=== PATIENT | female | born 1985 | race Caucasian/White ===

== ENCOUNTER 2019-08-27 11:25 | Inpatient (IN) | payer OTHER ==
[2019-08-27 11:59] VITALS: BMI 29.9
[2019-08-27] MEDS ORDERED: CITRIC ACID/SODIUM CITRATE 30 ML UNIT-DOSE CUP PO ONE ×2 (12:30→15:22)
[2019-08-27] MEDS ORDERED: ELECTROLYTE-148 SOLN 500 ML IV ONE (12:45)
[2019-08-27] MEDS ORDERED: ELECTROLYTE-148 SOLN 500 ML IV SCH (13:15)
[2019-08-27] MEDS ORDERED: OXYTOCIN 20 UNITS in 0.9% NS 20 UNIT/1,000 ML INFUS.BAG IV ONE ×2 (13:25→16:29)
[2019-08-27] MEDS ORDERED: OXYTOCIN 10 UNITS/ML VIAL ONE (13:25)
[2019-08-27] MEDS ORDERED: SUCCINYLCHOLINE CHLORIDE 200 MG/10 ML SYRINGE ONE (13:32)
[2019-08-27] MEDS ORDERED: morphine SULFATE/PF 0.5 MG/ML (2cc Syringe - QUVA) ONE (13:32)
[2019-08-27] MEDS ORDERED: PROPOFOL 20 ML ONE (13:33)
[2019-08-27] MEDS ORDERED: PHENYLEPHRINE HCL 10 MG/1 ML SINGLE DOSE VIAL ONE (13:33)
[2019-08-27] MEDS ORDERED: KETOROLAC TROMETHAMINE 30 MG/1 ML VIAL ONE (14:00)
[2019-08-27] MEDS ORDERED: DEXAMETHASONE SOD PHOSPHATE 4 MG/1 ML VIAL ONE (14:00)
[2019-08-27] MEDS ORDERED: ONDANSETRON 4 MG/2 ML VIAL IVPUSH PRN (14:21)
[2019-08-27] MEDS ORDERED: morphine SULFATE/PF 0.5 MG/ML (2cc Syringe - QUVA) EP ONE (14:21)
[2019-08-27] MEDS ORDERED: METHYLERGONOVINE MALEATE 0.2 MG/1 ML AMP IM PRN (15:23)
[2019-08-27] MEDS ORDERED: oxyCODONE HCL 5 MG TABLET PO PRN ×2 (15:23)
[2019-08-27] MEDS ORDERED: ACETAMINOPHEN 325 MG TABLET (FP) PO PRN (15:23)
[2019-08-27] MEDS ORDERED: SENNOSIDES/DOCUSATE COMBO (SENNA PLUS) TABLET (UD) PO PRN (15:23)
[2019-08-27] MEDS ORDERED: IBUPROFEN 600 MG TABLET (FP) PO PRN (15:23)
[2019-08-27] MEDS ORDERED: IBUPROFEN 800 MG/8 ML IJ IVPB PRN (15:23)
--- NOTE | 2019-08-27 15:28 | OP ---
Operative Note - Note: Operative Date: 08/27/19 Pre-Operative Diagnosis: repeat lt c s , btl Operation: repeat lt c s , btl Findings: no adhesions Post-Operative Diagnosis: Same as Pre-op Surgeon: Roc Castillo Induction Coordination Power Engineer: Fly Gallo Anesthesiologist/CEMENT MIXER DRIVER: Edel Zuleta Anesthesia: Spinal Estimated Blood Loss (mls): 600 (no complications ) Operative Report Dictated: Yes
[2019-08-27] MEDS ORDERED: ELECTROLYTE-148 SOLN 1,000 ML IV SCH (15:30)
[2019-08-27] MEDS ORDERED: OXYTOCIN 20 UNITS in 0.9% NS 20 UNIT/1,000 ML INFUS.BAG IV SCH (15:30)
--- NOTE | 2019-08-27 18:48 | HP ---
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: Alzheimer's, CVA, Dementia, Migraine, Multiple Sclerosis, Peripheral Neuropathy, Parkinson's, Seizure, Syncope, TIA, Vertigo, Other Cardiovascular: No: AFIB, Aneurysm, Aortic Insufficiency, Aortic Stenosis, CAD, CHF, Deep Vein Thrombosis, HTN, Hyperlipdemia, HI, Mitral Insufficiency, Mitral Stenosis, Murmur, Pulmonary Hypertension, Other Pulmonary: No: Asthma, Bronchitis, Cancer, COPD, O2 Dependent, Pneumonia, Previously Intubated, Pulmonary Embolus, Pulmonary Fibrosis, Sleep Apnea, Other Gastrointestinal: No: Ascites, Cancer, Constipation, Crohn's Disease, Diverticulitis, Diverticulosis, Esophageal Varices, Gastritis, GERD, GI Bleed, Hemorrhoids, Hiatal Hernia, Inflamatory Bowel Disease, Irritable Bowel Disease, Pancreatitis, Peptic Ulcer Disease, Ulcerative Colitis, Other Hepatobiliary: No: Cirrhosis, Cholelithiasis, Cholecystitis, Choledocholithiasis , Hepatitis A, Hepatitis B, Hepatitis C, Other Renal/: No: Renal Failure, Renal Inusuff, BPH, Cancer, Hematuria, Hemodialysis , Neurogenic Bladder, Renal Calculi, UTI, Other Reproductive: No: Ectopic , Endometriosis, Fibroids, PID, Polycystic Ovary Syndrome, Postmenopausal, Other ...: 3 ...Para: 2 ...Term: 2 ...: 0 ...Spon : 0 ...Induced : 0 ...Multiple Gestation: 0 ...LMP: 11/28/18 ... Weeks Gestation by Dates: 38.6 ...EDC by Dates: 09/04/19 ...EDC by Sono: 09/03/19 Heme/Onc: No: Anemia, B12 Deficiency, Bleeding Disorder, Cancer, Current Chemotherapy, Current Radiation Therapy, Hemochromatosis, Hypercoaguable State, Myeloproliferative Synd, Sickle Cell Disease, Sickle Cell Trait, Thrombocytopenia, Other Infectious Disease: No: AIDS, C-Diff, Herpes Zoster, HIV, MRSA, STD's, Tuberculosis, VREF, Other Psych: No: Addictions, Anxiety, Bipolar, Depression, Panic, Psychosis, Schizophrenia, Other Musculoskeletal: No: Bursitis, Chronic low back pain, Hemiparesis, Hemiplegia, Osteoarthritis, Paraplegia, Other Rheumatology: No: Fibromyalgia, Gout, Lupus, Rheumatoid Arthritis, Sarcoidosis, Vasculitis, Other ENT: No: Allergic Rhinitis, Sinusitis, Other Endocrine: No: Sorin's Disease, Stephanie's Disease, Diabetes Insipidus, Diabetes Mellitus, Hyperparathyroidism, Hyperthyroidism, Hypothyroidism, Osteopenia, SIADH, Other Dermatology: No: Basal Cell, Cellulitis, Eczema, Melanoma, Psoriasis, Squamous Cell, Other - Past Surgical History Past Surgical History: Yes: Hx Myomectomy: No Hx Transabdominal Cerclage: No - Advance Directives Advance Directives: Yes: Living Will - Smoking History Smoking history: Never smoked Have you smoked in the past 12 months: No - Alcohol/Substance Use Hx Alcohol Use: No History of Substance Use: reports: None - Social History Usual Living Arrangement: Yes: With Spouse Do you think of yourself as: Straight/Heterosexual ADL: Independent History of Recent Travel: No Home Medications - Allergies Allergies/Adverse Reactions: Allergies Allergy/AdvReac Type Severity Reaction Status Date / Time No Known Allergies Allergy Verified 08/27/19 11:32 - Home Medications Home Medications: Ambulatory Orders Pnv No.95/Ferrous Fum/Folic AC [ Vitamin Tablet] 1 each PO DAILY Family Medical History Family History: Denies Review of Systems - Review of Systems Constitutional: reports: No Symptoms Eyes: reports: No Symptoms HENT: reports: No Symptoms Neck: reports: No Symptoms Cardiovascular: reports: No Symptoms Respiratory: reports: No Symptoms Gastrointestinal: reports: No Symptoms Genitourinary: reports: No Symptoms Breasts: reports: No Symptoms Reported Musculoskeletal: reports: No Symptoms Integumentary: reports: No Symptoms Neurological: reports: No Symptoms Endocrine: reports: No Symptoms Hematology/Lymphatic: reports: No Symptoms Psychiatric: reports: No Symptoms Physical Exam - Maternity Vital Signs: Vital Signs Temperature 97.4 F L 08/27/19 16:00 Pulse Rate 89 08/27/19 16:00 Respiratory Rate 18 08/27/19 17:13 Blood Pressure 109/69 08/27/19 16:00 O2 Sat by Pulse Oximetry (%) 100 08/27/19 16:00 Constitutional: Yes: Well Nourished, No Distress, Calm Eyes: Yes: WNL, Conjunctiva Clear, EOM Intact HENT: Yes: WNL, Atraumatic, Normocephalic Neck: Yes: WNL, Supple, Trachea Midline Cardiovascular: Yes: WNL, Regular Rate and Rhythm Lungs: Clear to auscultation Breast(s): Yes: WNL - Abdominal Exam/OB Fundal Height: 40 Number of Fetuses: Single Presentation: Vertex Contractions: Yes Regularity: Irregular Intensity: Unaware Monitor Mode: External Heart Rate (range): 150 Heart Rate Location: [facility] Category: I Accelerations: Uniform Decelerations: None - Vaginal Exam/OB Vaginal Bleediing: No Speculum Exam: No Dilatation (cm): 1 Effacement (%): 20 Amniotic Membrane Status: Intact Amniotic Fluid: Yes: Clear Presentation: Vertex/Position Station: -3 - Physical Exam Musculoskeletal: Yes: WNL Extremities: Yes: WNL Edema: Yes Integumentary: Yes: WNL Deep Tendon Reflex Grade: Normal +2 ...Motor Strength: WNL Psychiatric: Yes: WNL, Alert, Oriented Hemorrhage Risk Assessment - Risk Factors Medium Risk Factors: Yes: Prior , uterine surgery,or multiple laparotomies High Risk Factors: Yes: None Risk Score: 1 Risk Level: Medium Risk Assessment/Plan for repeat lt c s , btl
--- NOTE | 2019-08-28 07:42 | PN ---
Post Progress Note Post Day: 1 Type of Delivery: Repeat C/S Vital Signs: Vital Signs Temperature 98.3 F 08/28/19 06:00 Pulse Rate 77 08/28/19 06:00 Respiratory Rate 20 08/28/19 06:00 Blood Pressure 108/58 L 08/28/19 06:00 O2 Sat by Pulse Oximetry (%) 100 08/27/19 16:00 Breast Exam: Yes: Soft Uterus: Yes: Fundus Firm, Fundus below umbilicus, Non-tender Abdomen/GI: Yes: Abdomen soft, Tolerating PO Lochia: Yes: Serosa Lochia, amount: Small Extremities: Yes: Calves non-tender Perineum: Yes: Intact Activity: Ambulating
--- NOTE | 2019-08-28 09:27 | PN ---
Progress Note (short form) - Note Progress Note: POD1 s/p csection under spinal with duramorth. Pt is doing well, OOB to chair and nursing. No STILL, no back pain, incisional pain well controlled. No anesthetic issues/complications noted
[2019-08-28] MEDS: IBUPROFEN 600 MG TABLET (FP) PO PRN ×2 (09:38→18:31)
[2019-08-28] MEDS: ACETAMINOPHEN 325 MG TABLET (FP) PO PRN ×2 (09:39→18:32)
[2019-08-28] MEDS: ENOXAPARIN NA (PORCINE) 40 MG/0.4 ML DISP.SYRIN SQ SCH (09:40)
[2019-08-28] MEDS: SIMETHICONE 80 MG TAB.CHEW (FP) PO PRN ×2 (09:40→18:33)
[2019-08-28] MEDS ORDERED: DIPHTH,PERTUSS(ACELL),TET 0.5 ML DISP.SYRIN IM ONE (10:00)
[2019-08-28] MEDS ORDERED: FLU VACC QS2019-20(6MOS UP)/PF 60 MCG/0.5 ML SYRINGE IM ONE (10:00)
[2019-08-28 10:47] LABS: BASO % 0.3 % (0-2.0); EOS % 0.3 % (0-4.5); HEMATOCRIT 30.8 % (32.4-45.2); HEMOGLOBIN 10.4 GM/dL (10.7-15.3); LYMPH % 14.1 % (8-40); MCH 30.9 pg (25.7-33.7); MCHC 33.7 g/dl (32.0-36.0); MEAN CELL VOLUME 91.6 fl (80-96); MEAN PLT VOLUME 9.8 fl (7.5-11.1); MONO % 6.2 % (3.8-10.2); NEUT % 79.1 % (42.8-82.8); PLATELET COUNT 218 K/MM3 (134-434); RBC 3.36 M/mm3 (3.60-5.2); RDW 13.1 % (11.6-15.6); WHITE BLOOD COUNT 15.2 K/mm3 (4.0-10.0)
[2019-08-28] MEDS ORDERED: BISACODYL 10 MG SUPP.RECT RC PRN (15:23)
[2019-08-28] MEDS ORDERED: FLU VACCINE QUAD 60 MCG/0.5 ML (MDV 19-20) IM ONE (17:33)
[2019-08-29] MEDS: ACETAMINOPHEN 325 MG TABLET (FP) PO PRN ×4 (02:12→21:02)
[2019-08-29] MEDS: SIMETHICONE 80 MG TAB.CHEW (FP) PO PRN ×4 (02:12→21:02)
[2019-08-29] MEDS: IBUPROFEN 600 MG TABLET (FP) PO PRN ×4 (02:13→21:02)
--- NOTE | 2019-08-29 03:33 | PN ---
Post Progress Note Post Day: 2 Type of Delivery: Repeat C/S Vital Signs: Vital Signs Temperature 98.0 F 08/28/19 20:12 Pulse Rate 76 08/28/19 20:12 Respiratory Rate 20 08/28/19 20:12 Blood Pressure 118/75 08/28/19 20:12 O2 Sat by Pulse Oximetry (%) 100 08/27/19 16:00 Breast Exam: Yes: Soft Uterus: Yes: Fundus Firm, Fundus below umbilicus, Non-tender Incision: Yes: Dressing dry and intact, Sutures intact Abdomen/GI: Yes: Abdomen soft, Passing flatus, Tolerating PO Lochia: Yes: Serosa Lochia, amount: Small Extremities: Yes: Calves non-tender Perineum: Yes: Intact Activity: Ambulating (dc pt home today ) - Labs Labs: CBC WBC 15.2 K/mm3 (4.0-10.0) H 08/28/19 09:55 RBC 3.36 M/mm3 (3.60-5.2) L 08/28/19 09:55 Hgb 10.4 GM/dL (10.7-15.3) L 08/28/19 09:55 Hct 30.8 % (32.4-45.2) L 08/28/19 09:55 MCV 91.6 fl (80-96) 08/28/19 09:55 MCH 30.9 pg (25.7-33.7) 08/28/19 09:55 MCHC 33.7 g/dl (32.0-36.0) 08/28/19 09:55 RDW 13.1 % (11.6-15.6) 08/28/19 09:55 Plt Count 218 K/MM3 (134-434) 08/28/19 09:55 MPV 9.8 fl (7.5-11.1) 08/28/19 09:55 Absolute Neuts (auto) 12.0 K/mm3 (1.5-8.0) H 08/28/19 09:55 Neutrophils % 79.1 % (42.8-82.8) 08/28/19 09:55 Lymphocytes % 14.1 % (8-40) D 08/28/19 09:55 Monocytes % 6.2 % (3.8-10.2) 08/28/19 09:55 Eosinophils % 0.3 % (0-4.5) 08/28/19 09:55 Basophils % 0.3 % (0-2.0) 08/28/19 09:55 Nucleated RBC % 0 % (0-0) 08/28/19 09:55
--- NOTE | 2019-08-29 06:30 | DS ---
Physical Exam-PAIL TESTER Vital Signs: Vital Signs Temperature 98.0 F 08/28/19 20:12 Pulse Rate 76 08/28/19 20:12 Respiratory Rate 20 08/28/19 20:12 Blood Pressure 118/75 08/28/19 20:12 O2 Sat by Pulse Oximetry (%) 100 08/27/19 16:00 Constitutional: Yes: Well Nourished, No Distress, Calm Eyes: Yes: WNL, Conjunctiva Clear, EOM Intact HENT: Yes: WNL, Atraumatic, Normocephalic Neck: Yes: WNL, Supple, Trachea Midline Cardiovascular: Yes: WNL, Regular Rate and Rhythm Respiratory: Yes: WNL, Regular, CTA Bilaterally Gastrointestinal: Yes: WNL, Normal Bowel Sounds, Soft ...Rectal Exam: Yes: WNL Renal/: Yes: WNL Pelvis: Yes: WNL External Genitalia: Yes: Normal Internal Exam Deferred: No Vaginal Exam: Yes: Normal Cervix: Yes: Normal Uterus: Yes: Normal Adnexa: Normal: Bilateral ....Post : Yes: Uterus firm, Uterus non-tender Breast(s): Yes: WNL Musculoskeletal: Yes: WNL Extremities: Yes: WNL Edema: Yes Edema: LUE: 1+, RUE: 1+, LLE: 1+, RLE: 1+ Integumentary: Yes: WNL Wound/Incision: Yes: Clean/Dry, Well Approximated Neurological: Yes: WNL, Alert, Oriented ...Motor Strength: WNL Psychiatric: Yes: WNL, Alert, Oriented Labs: CBC, BMP 08/28/19 09:55 Delivery - Delivery Type of Anesthesia: Spinal Episiotomy/Laceration: None EBL (cc): 600 Delivery, Single - Stages of Labor Date of Delivery: 08/27/19 Time of Delivery: 14:02 Time Placenta Delivered: 14:03 - Condition of Infant Mineral Ore Processing Labourer/Washcoat Wiper Present: Yes Name: Selene Taylor Gender: Male Weight: 3.969 kg Position: Left, OA Total Hours ROM (Hrs/Mins): 2min - 1 Minute Total Score: 9 5 Minutes Total Score: 9 - [place] Feeding Plan Initial Plan: Exclusive throughout hospitalization Discharge Summary Problems reviewed: Yes Reason For Visit: REPEAT BTL Procedures: Principal: repeat lt c s , btl Other Procedures: btl Hospital Course: uneventful Health Concerns: none Plan of Treatment: oob as much as possible Goals: return to work in 6 weeks Condition: Good - Instructions Diet, Activity, Other Instructions: Physical activity Resume your normal everyday activity as tolerated no heavy lifting or exercise until seen by your surgeon. You may walk unlimited yasmeen of and climb stairs. You may resume driving the car when you feel safe and comfortable behind the wheel. No sexual activity as instructed. Wound care If you have a bandage, leave it on, and keep dry for 48-72 hours. After that time discard the outer bandage. If they are tapes on the skin under the out of bandage leave them in place. They will peel off in the next 7 to 10 days. Do Not Peel them off. You may shower the day after surgery. If there are tapes present on the skin, you may shower over them. Diet There are no dietary restrictions. Eat healthy, high-fiber foods. Drink 6 to 8 glasses of liquid each day. This will assist in keeping your bowels are regular. Pain management You may take Tylenol or acetaminophen or Ibuprofen (for example, Motrin, Advil etc.) from my pain prescription medication is ordered should be taken as prescribed for moderate to severe pain. Call MD for any of the following: call for [address] sylvester Severe pain not relieved by medication Fever of 101 or higher Excessive bleeding or drainage on dressing Inability to urinate Disposition: HOME - Home Medications Comprehensive Discharge Medication List: Ambulatory Orders Pnv No.95/Ferrous Fum/Folic AC [ Vitamin Tablet] 1 each PO DAILY Prescription Drug Monitoring Program (I-STOP) results: I-STOP reviewed and no issues identified
[2019-08-29] MEDS: ENOXAPARIN NA (PORCINE) 40 MG/0.4 ML DISP.SYRIN SQ SCH (09:11)
[2019-08-30] MEDS: ACETAMINOPHEN 325 MG TABLET (FP) PO PRN (06:35)
[2019-08-30] MEDS: SIMETHICONE 80 MG TAB.CHEW (FP) PO PRN (06:35)
[2019-08-30] MEDS: IBUPROFEN 600 MG TABLET (FP) PO PRN (06:36)
[2019-08-30 09:13] LABS: BASO % 0.4 % (0-2.0); EOS % 1.6 % (0-4.5); HEMATOCRIT 32.4 % (32.4-45.2); HEMOGLOBIN 10.8 GM/dL (10.7-15.3); LYMPH % 17.5 % (8-40); MCH 30.8 pg (25.7-33.7); MCHC 33.3 g/dl (32.0-36.0); MEAN CELL VOLUME 92.5 fl (80-96); MEAN PLT VOLUME 9.4 fl (7.5-11.1); MONO % 7.2 % (3.8-10.2); NEUT % 73.3 % (42.8-82.8); PLATELET COUNT 270 K/MM3 (134-434); RBC 3.51 M/mm3 (3.60-5.2); RDW 13.2 % (11.6-15.6); WHITE BLOOD COUNT 11.3 K/mm3 (4.0-10.0)
[2019-08-30] MEDS: ENOXAPARIN NA (PORCINE) 40 MG/0.4 ML DISP.SYRIN SQ SCH (10:00)
[2019-08-30 15:16] VITALS: BP 134/83; PULSE 73; TEMP 98.1
--- NOTE | 2019-09-01 15:39 | PATH ---
Surgical Pathology Report Patient Name: BREANA ROWLEY [facility]. Rec. 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 PLACENTA: THIRD TRIMESTER PLACENTA. TRIVASCULAR CORD. MEMBRANES WITH NO DIAGNOSTIC ABNORMALITIES. B. PORTION OF RIGHT FALLOPIAN TUBE: COMPLETE CROSS SECTION OF THE FALLOPIAN TUBE LUMEN IDENTIFIED. C. PORTION OF LEFT FALLOPIAN TUBE: COMPLETE CROSS SECTION OF THE FALLOPIAN TUBE LUMEN ARE IDENTIFIED. Electronically Signed Nancy Waldrop M.D. Gross Description A. The specimen is received fresh labeled placenta and is a 554 gram, 19.5 x 16.0 x 3.3 cm. placenta with attached membranes and umbilical cord. The attached membranes are taylor, thick, cloudy and insert marginally. The umbilical cord measures 45 cm. in length and averages 1.1 cm. in diameter. The cord inserts centrally. No true knots or strictures are identified. Cut surface of the umbilical cord reveals 3 vessels. The surface is gomez-blue with minimal fibrin deposition and appropriate caliber vessels. The maternal surface is red-brown with focal defects. Sectioning reveals red-brown, spongy parenchyma. No lesions are identified. Entertainment Lawyer sections are submitted in three cassettes as follows: 1- membrane rolls and umbilical cord; 2-3- full thickness sections of placenta. B. Received in formalin labeled "right fallopian tube," is a 1.8 cm in length portion of fallopian tube. No fimbria are present. The outer surface is taylor-hernandez and smooth. Sectioning reveals an unremarkable lumen. Entertainment Lawyer sections are submitted in one cassette. C. Received in formalin labeled "left fallopian tube," is a 2.2 cm in length portion of fallopian tube. No fimbria are present. The outer surface is taylor-hernandez and smooth. Sectioning reveals an unremarkable lumen. Entertainment Lawyer sections are submitted in one cassette. 08/31/2019 saudi08/31/2019
--- NOTE | 2019-09-29 06:40 | OP ---
DATE OF OPERATION: 08/27/2019 PREOPERATIVE DIAGNOSES: Repeat low transverse section x3 and bilateral tubal ligation. POSTOPERATIVE DIAGNOSES: Repeat low transverse section x3 and bilateral tubal ligation. PROCEDURE: Repeat low transverse section and bilateral tubal ligation. SURGEON: Roc Grimaldo MD RIBBON TIER: MELI Graves ANESTHESIOLOGIST: WIL Joseph ANESTHESIA: Spinal anesthesia. BLOOD LOSS: About 600 mL. INDICATION: This is a 33-year-old female patient who previously had 2 low transverse sections. All the risks and benefits, alternatives explained to the patient including future , nonreversible and ectopic and only 99% effective rate. Patient understands. Patient insisted on tubal ligation and declined any other family planning methods. DESCRIPTION OF PROCEDURE: So patient was taken to the OR at 39 weeks and patient was placed on the operating table in the supine position after the spinal anesthesia was obtained. Then patient's abdomen and pelvis were prepped and draped in the usual sterile manner. Pfannenstiel incision was made. Incision was made through the skin and subcutaneous tissue until the fascia was nicked in the midline and fascia extended bilaterally. Intraperitoneal cavity was entered. Bladder flap was not created. Low transverse segment was entered. Baby was delivered from LOT position. Patient was handed over to heel cover softener after umbilical cord doubly clamped and cut. Placenta was removed. Uterus closed in a single layer, first with interlocking Vicryl sutures. Good hemostasis. No complication. Then we proceeded to the tubal ligation part. Both isthmic ends of fallopian tubes were grasped with Milton and double transected and suture ligated. Both ends of the tubes were coagulated with Bovie. Good hemostasis. No complication. Patient tolerated the procedure well and good hemostasis, draining clear urine. Blood loss about 600 mL. Then peritoneum was closed. Fascia was closed. Skin was closed. Transferred to recovery room in stable condition. ROC GRIMLADO MD [id number]
== END 2019-08-30 15:00 | disposition home or self-care (01) | DRG 540 ==
LOC: EDBD → JLDR 11:25 → J3W 16:49 → EDBD 09-30 08:00
PROVIDERS: ADMIT Obstetrics & Gynecology; ATTEND Obstetrics & Gynecology
PROC: 10D00Z1 Extraction of Products of Conception, Low, Open Approach (ICD-10-PCS; principal; 2019-08-27)
PROC: 0UB70ZZ Excision of Bilateral Fallopian Tubes, Open Approach (ICD-10-PCS; 2019-08-27)
DX: O34.211 Maternal care for low transverse scar from previous cesarean delivery (principal); N85.8 Other specified noninflammatory disorders of uterus; Z3A.38 38 weeks gestation of pregnancy; Z37.0 Single live birth; Z30.2 Encounter for sterilization
CPT/HCPCS: 36415; 85025; 88302-TC; 88307-TC; 90686; 90715